=== PATIENT | male | born 1945 | race Caucasian/White ===

== ENCOUNTER 2017-09-13 15:19 | Inpatient (IN) | payer MEDICARE ==
[~2017-09-13] VITALS: Ht 177.8 cm; Wt 91.6 kg
--- NOTE | ~2017-09-13 | HEMODYNAMI ---
PATIENT:CAROLINE ANDREWS MEDICAL RECORD: [id number] : 41 LOCATION:[facility] D.2122 ADMISSION DATE: 09/13/17 Generatedon:09/15/20179:50 Patient name: CAROLINE ANDREWS Patient #: [id number] SSN: D OB: 1945 Date of study: 09/15/2017 Page: Of Hemodynamic Procedure Report Patient Data Patient Demographics Procedure consent was obtained First Name: CAROLINE Gender: Male Last Name: DARRYL : 1945 [facility] Initial: L Age: 72 year(s) Patient #: [id number] Race: Unknown Additional ID: [id number] Contact details Address: [place] [place] [address] State: [place] City: [place] Zip code: [address] Past Medical History Allergies: No known allergies Admission Admission Data Admission Date: 09/13/2017 Admission Time: 15:19 Room #: .2122 Procedure Procedure Types Cath Procedure Diagnostic Procedure LHC LHC w/Coronaries Sedation Charges Moderate Sedation up to 30 minutes PCI Procedure Coronary Stent Coronary Stent Initial Procedure Description Procedure Date Procedure Date: 09/15/2017 Procedure Start Time: 9:22 Procedure End Time: 9:50 Procedure Staff Name Function Damián Lee MD Performing Physician Urmila Boyd RT Monitor Idalmis Worthington RN Nurse Ernie Sahu RT Scrub Procedure Data Cath Procedure Fluoroscopy Diagnostic fluoroscopy Total fluoroscopy Time: 8 time: 8 min min Diagnostic fluoroscopy Total fluoroscopy dose: dose: 2014 mGy 2015 mGy Contrast Material Contrast Material Type Amount (ml) Isovue 300 88 Entry Location Entry Primary Successful Side Size Upsize Upsize Entry Closure Yeager ccessful Closure Location (Fr) 1 (Fr) 2 (Fr) Remarks Device Remarks Radial Right 6 Fr Mechanical artery Short Compression Estimated blood loss: 10 ml Diagnostic catheters Device Type Used For End Catheter Placement DIAGNOSTIC [place] 110cm 5 Left Coronary Fr catheter ([id number]) Angiography DIAGNOSTIC [place] 110cm 5 LV Angiography Fr catheter ([id number]) DIAGNOSTIC [place] 110cm 5 Right Coronary Fr catheter ([id number]) Angiography Procedure Complications No complications Procedure Medications Medication Administration Route Dosage Oxygen NC 2 l/min Lidocaine 1% Heparin Flush Bag added to field 2 bags (1000units/500ml NS) 0.9% NaCl I.V. 100 ml/hr Versed I.V. 1 mg Fentanyl I.V. 50 mcg Versed I.V. 1 mg Fentanyl I.V. 50 mcg Radial Cocktail I.A. 1 syringe (Verapomil 2mg/Nitro 400mcg/Heparin 1500units) Angiomax (bolus) I.V. 13.5 ml Angiomax Drip I.V. drip 32.2 ml/hr (250mg/50ml NS) (Standard) Versed I.V. 1 mg Angiomax Drip 32.2 ml/hr (250mg/50ml NS) (Standard) Hemodynamics Rest Heart Rate: 77 (bpm) Snapshots Pre Cath Intra NCS Post Cath Vital Signs Time Heart Resp SPO2 etCO2 NIBP (mmHg) Rhythm Pain Sedation Rate (ipm) (%) (mmHg) Status Level (bpm) 9:02:02 71 23 99 18.8 147/90(120) A-Fib 0 (11) 10(A) , No pain 9:06:18 70 16 99 24 137/86(120) A-Fib 0 (11) 10(A) , No pain 9:10:32 69 18 99 29.3 120/85(96) A-Fib 0 (11) 10(A) , No pain 9:14:39 61 21 98 23.3 126/80(99) A-Fib 0 (11) 10(A) , No pain 9:18:51 57 21 98 21.8 113/74(88) A-Fib 0 (11) 10(A) , No pain 9:22:59 73 17 98 29.2 120/72(103) A-Fib 0 (11) 9(A) , No pain 9:27:15 74 19 95 24.8 88/58(69) A-Fib 0 (11) 9(A) , No pain 9:31:17 75 14 96 26.3 104/65(76) A-Fib 0 (11) 9(A) , No pain 9:35:23 65 19 100 22.5 105/71(79) A-Fib 0 (11) 9(A) , No pain 9:39:28 70 17 97 26.3 105/71(84) A-Fib 0 (11) 10(A) , No pain 9:43:34 69 20 97 18.9 104/69(95) A-Fib 0 (11) 10(A) , No pain 9:47:42 62 18 98 17.2 110/62(88) A-Fib 0 (11) 10(A) , No pain Medications Time Medication Route Dose Verified Delivered Reason Notes Effectiveness by by 9:02:30 Oxygen NC 2 l/min Damián Buffie used for Rosa Worthington RN procedure 9:02:37 Lidocaine 1% Damián Buffie Rosa Worthington RN, MD 9:02:42 Heparin Flush added to 2 bags Damián Buffie used for Bag field Rosa Worthington RN procedure (1000units/500ml NS) 9:02:49 0.9% NaCl I.V. 100 Damián Buffie Per physician ml/hr Rosa Worthington RN, MD 9:16:16 Versed I.V. 1 mg Damián Buffie for sedation Rosa Worthington RN, MD 9:16:22 Fentanyl I.V. 50 mcg Damián Buffie for sedation Rosa Worthington RN, MD 9:19:55 Versed I.V. 1 mg Damián Buffie for sedation Rosa Worthington RN, MD 9:19:59 Fentanyl I.V. 50 mcg Damián Buffie for sedation Rosa Worthington RN, MD 9:20:09 Radial Cocktail I.A. 1 Damián Damián for (Verapomil syringe Rosa Lee MD vasodilation 2mg/Nitro MD 400mcg/Heparin 1500units) 9:34:32 Angiomax (bolus) I.V. 13.5 ml Damián Buffie for 250 Rosa Worthington RN anticoagulation mg/50 MD ml 9:35:24 Angiomax Drip I.V. drip 32.2 Damián Buffie for (250mg/50ml NS) ml/hr Rosa Worthington RN anticoagulation (Standard) 9:39:00 Versed I.V. 1 mg Damián Buffie for sedation Rosa Worthington RN, MD 9:47:31 Angiomax Drip I.V. drip- 32.2 Damián Buffie for (250mg/50ml NS) discontinued ml/hr Rsoa Worthington RN anticoagulation (Standard) MD Procedure Log Time Note 8:42:26 Time tracking: Regular hours (M-F 7:00 - 5:00) 8:42:31 Plan of Care:Hemodynamics will remain stable., Cardiac rhythm will remain stable., Comfort level will be maintained., Respiratory function will remain adequate., Patient/ family verbilizes understanding of procedure., Procedure tolerated without complication., Recovers from procedure without complications.. 8:43:41 Urmila Counts RT(R) sent for patient. Start room use. 8:56:09 Patient received from PCU to CCL 2 Alert and oriented. Tansferred to table in Supine position. 8:56:10 Warm blankets applied, and ambrose hugger turned on for patient comfort. 8:56:10 Correct patient and procedure confirmed by team. 8:56:12 Signed procedure consent form obtained from patient. 8:56:13 ECG and BP/O2 sat monitors applied to patient. 9:00:38 Vital chart was started 9:02:30 Oxygen 2 l/min NC was administered by Idalmis Worthington RN; used for procedure; 9:02:37 Lidocaine 1% was administered by Idalmis Worthington RN; ; 9:02:42 Heparin Flush Bag (1000units/500ml NS) 2 bags added to field was administered by Idalmis Worthington RN; used for procedure; 9:02:49 0.9% NaCl 100 ml/hr I.V. was administered by Idalmis Worthington RN; Per physician; 9:12:08 Full Disclosure recording started 9:12:13 Rhythm: atrial fibrillation 9:12:44 Baseline sample Acquired. 9:13:59 H&P Date Dictated: 09/14/2017 Within 30 days and on chart.. 9:14:05 Pre-procedure instructions explained to patient. 9:14:06 Pre-op teaching completed and patient verbalized understanding. 9:14:07 Family unavailable. 9:14:19 Patient NPO since Midnight. 9:14:28 Patient allergic to No known allergies 9:14:31 Is the patient allergic to Iodine/contrast media? No. 9:14:37 Is patient on blood thinner?Yes 9:14:38 ACC The patient was administered the following blood thiners within the last 24 hours: ACCPlavix 9:14:44 Patient diabetic? No. 9:14:46 Previous problem with sedation/anesthesia? No ? 9:14:47 Snore? Yes 9:14:53 Sleep apnea? Yes 9:14:54 Deviated septum? No 9:14:55 Opens mouth fully? Yes 9:14:55 Sticks out tongue? Yes 9:14:57 Airway obstruction? No ? 9:14:59 Dentures? No ? 9:15:02 Pre procedure: right dorsailis pedis pulse 2+ Normal; easily identifiable; not easily obliterated 9:15:03 Modified Oren's test Ulnar < 7 seconds 9:15:06 Patient pain scale 0/10 ?. 9:15:13 IV patent on arrival in left forearm with 0.9% NaCl at [facility]. 9:15:17 Lab results completed and on chart. 9:15:21 Right Radial & Right Groin area was prepped with chlora-prep and draped in sterile fashion 9:15:22 Alarms reviewed by R. N. 9:15:22 Sharps counted by scrub and verified by R.N. 9:15:26 Use device set Radial Dx or PCI 9:15:27 ACIST Syringe (83184) opened to sterile field. 9:15:27 Medline Cath Pack ([id number]) opened to sterile field. 9:15:28 Bag Decanter (2002S) opened to sterile field. 9:15:28 DIAGNOSTIC WIRE .035 260cm J wire (572915) opened to sterile field. 9:15:29 ACIST Hand Control (01367) opened to sterile field. 9:15:29 ACIST Manifold (23757) opened to sterile field. 9:15:30 MBrace Wrist Support ([id number]) opened to sterile field. 9:15:32 SHEATH 6Fr Prelude Radial ([id number]) opened to sterile field. 9:15:42 Final Timeout: patient, procedure, and site verified with staff and physician. All members of the team are in agreement. 9:15:45 Right Radial site verified by team. 9:15:47 Physical assessment completed. ASA score P 2 - A patient with mild systemic disease as per Damián Lee MD. 9:15:52 Sedation plan: IV Moderate Sedation Medication:Versed, Fentanyl 9:16:16 Versed 1 mg I.V. was administered by Buffie Worthington RN; for sedation; 9:16:22 Fentanyl 50 mcg I.V. was administered by Idalmis Worthington RN; for sedation; 9:18:45 Zero performed for pressure channel P1 9:19:55 Versed 1 mg I.V. was administered by Idalmis Worthington RN; for sedation; 9:19:59 Fentanyl 50 mcg I.V. was administered by Idalmis Worthington RN; for sedation; 9:20:09 Radial Cocktail (Verapomil 2mg/Nitro 400mcg/Heparin 1500units) 1 syringe I.A. was administered by Damián Lee MD; for vasodilation; 9:22:05 Procedure started. 9:22:32 Local anesthetic to right radial artery with Lidocaine 1% by Damián Lee MD.INITIAL ACCESS ONLY 9:24:44 A 6 Fr Short sheath was inserted into the Right Radial artery 9:26:10 A DIAGNOSTIC [place] 110cm 5 Fr catheter ([id number]) was advanced over the wire and used for Left Coronary Angiography. 9:29:03 A DIAGNOSTIC [place] 110cm 5 Fr catheter (545900) was advanced over the wire and used for LV Angiography. 9:29:09 A DIAGNOSTIC [place] 110cm 5 Fr catheter (273680) was advanced over the wire and used for Right Coronary Angiography. 9:29:11 Catheter removed. 9:29:38 Use device set NORRED PCI 9:29:44 INFLATOR Merit BasixCompak (ZE8965) opened to sterile field. 9:29:45 COPILOT Valve Control (7415098) opened to sterile field. 9:29:46 BMW 190cm Williamson 2 J wire ([id number]) opened to sterile field. 9:30:30 GUIDE 6FR EBU 3.5 SH catheter ([id number]) opened to sterile field. 9:31:55 6 Fr EBU 3.5 SH guide catheter was inserted over the wire 9:33:25 BMW wire advanced. 9:34:32 Angiomax (bolus) 13.5 ml I.V. was administered by Idalmis Worthington RN; for anticoagulation; 250 mg/50 ml 9:35:24 Angiomax Drip (250mg/50ml NS) (Standard) 32.2 ml/hr I.V. drip was administered by Idalmis Worthington RN; for anticoagulation; 9:36:15 The ALISIA RX 2.0 x 18 stent ([id number]) was advanced then removed because of failure to cross lesion 9:38:10 Inflate balloon Inflation number: 1 A EUPHORA 2.0 x 20 Balloon ([id number]) was prepped and advanced across the Dist CX, then inflated to 12 BERTHA for 0:11 (min:sec). 9:39:00 Versed 1 mg I.V. was administered by Idalmis Worthington RN; for sedation; 9:39:18 Balloon removed over the wire. 9:40:19 Place stent Inflation Number: 2 A ALISIA RX 2.0 x 18 stent ([id number]) was prepped and advanced across the Dist CX. The stent was deployed at 12 BERTHA for 0:10 (min:sec). 9:40:35 Inflation number: 3 The stent balloon was then re-inflated across the Dist CX to 12 BERTHA for 0:08 (min:sec). 9:40:46 Inflation number: 4 The stent balloon was then re-inflated across the Dist CX to 12 BERTHA for 0:05 (min:sec). 9:41:05 Stent catheter was removed intact over wire. 9:43:36 Place stent Inflation Number: 1 A ALISIA RX 2.0 x 26 stent ([id number]) was prepped and advanced across the Mid CX. The stent was deployed at 15 BERTHA for 0:15 (min:sec). 9:45:05 Stent catheter was removed intact over wire. 9:45:06 Wire removed. 9:45:06 Guide catheter removed. 9:45:32 Sheath removed intact; hemostasis achieved with Mechanical Compression to the Right Radial artery. 9:45:49 Fluoroscopy time 08.00 minutes. 9:45:53 Flurop Dose total: 2014 9:45:53 Fluoroscopy dose: 2015 mGy 9:46:24 Contrast amount:Isovue 300 88ml. 9:46:25 Sharps counted by scrub and verified by R.N. 9:46:28 Insertion/operative site no bleeding no hematoma. 9:46:30 Post-op/insertion site Right Femoral artery dressed using a 4 x 4 and Tegaderm. 9:46:34 Post right femoral artery:stable, clean and dry 9:46:36 Procedure ended.(Physican Out) 9:46:36 Post Procedure Pulses reassessed and unchanged 9:46:40 Post-procedure physical assessment completed. ASA score P 2 - A patient with mild systemic disease as per Damián Lee MD. 9:46:42 Post procedure rhythm: unchanged. 9:46:45 Estimated blood loss: 10 ml 9:46:50 Post procedure instruction explained to patient.Patient verbalizes understanding. 9:46:51 Patient needs reinforcement of post procedure teaching. 9:46:57 Procedure Complication : No complications 9:46:59 See physician's report for complete and final results. 9:47:31 Angiomax Drip (250mg/50ml NS) (Standard) 32.2 ml/hr I.V. drip- discontinued was administered by Idalmis Worthington RN; for anticoagulation; 9:47:48 Procedure type changed to Cath procedure, Diagnostic procedure, LHC, LHC w/Coronaries, Sedation Charges, Moderate Sedation up to 30 minutes, PCI procedure, Coronary Stent, Coronary Stent Initial 9:48:25 TR BAND Large ([id number]) opened to sterile field. 9:49:38 Procedure and supply charges have been captured, reviewed, submitted and are correct. 9:49:49 Vital chart was stopped 9:49:53 Report given to PCU. 9:49:56 Patient transfered to PCU with Bed. 9:50:07 Procedure ended. 9:50:07 Full Disclosure recording stopped 9:50:11 End room use (Document Last) Intervention Summary Intervention Notes Time ActionType Lesion and Equipment Used Action# Pressure Duration Attributes 9:36:15 Discard ALISIA RX 2.0 x Stent 18 stent ([id number]) 9:38:10 Inflate Dist CX EUPHORA 2.0 x 1 12 00:11 balloon 20 Balloon ([id number]) 9:40:19 Place stent Dist CX ALISIA RX 2.0 x 2 12 00:10 18 stent ([id number]) 9:40:35 Reinflate Dist CX ALISIA RX 2.0 x 3 12 00:08 stent 18 stent balloon ([id number]) 9:40:46 Reinflate Dist CX ALISIA RX 2.0 x 4 12 00:06 stent 18 stent balloon ([id number]) 9:43:36 Place stent Mid CX ALISIA RX 2.0 x 1 15 00:15 26 stent ([id number]) Device Usage Item Name Manufacture Quantity Catalog Number Hospital Part Current Minimal Lot# / Charge Number Stock Stock Serial# Code ACIST Syringe Acist 1 21732 [id number] 849846 234060 20 (84677) Medical Systems Inc Medline Cath Cardinal 1 [id number] 172628 98527 351793 5 Pack Health ([id number]) Bag Decanter Microtek 1 2001S 742824 61196 575636 5 (2001S) Medical Inc. DIAGNOSTIC WIRE St Vikash 1 793531 229063 296015 020270 30 .035 260cm J wire (067545) ACIST Hand Acist 1 68700 317551 432329 059521 5 Control (91033) Medical Systems Inc ACIST Manifold Acist 1 39112 158553 015252 584318 5 (45890) Medical Systems Inc MBrace Wrist Advanced 1 140-0250-00 167087 48295 708674 5 Support Vascular ([id number]) Dynamics SHEATH 6Fr Merit 1 [id number] 363364 879285 446066 5 Prelude Radial Medical ([id number]) DIAGNOSTIC Terumo 1 405013 109046 300523 359261 5 [place] 110cm 5 Fr catheter (368898) INFLATOR Merit Merit 1 [id number] 791439 126329 688045 15 DangDang.[employer] Medical (XN4205) COPILOT Valve Judge 1 4554848 703955 603145 706362 5 Control Vascular (3900088) BMW 190cm Judge 1 [id number] 057941 99744 459784 5 Williamson 2 J Vascular wire ([id number]) GUIDE 6FR EBU Medtronic 1 [id number] 648829 33611 438735 1 3.5 SH catheter ([id number]) ALISIA RX 2.0 x Medtronic 1 [id number] 688278 8205367 121596 5 [id number] 18 stent ([id number]) EUPHORA 2.0 x Medtronic 1 [id number] 068681 769137 243438 5 [id number] 20 Balloon ([id number]) ALISIA RX 2.0 x Medtronic 1 [id number] 926104 377335 378407 5 [id number] 26 stent ([id number]) TR BAND Large Terumo 1 [id number] 461245 682998 474725 40 ([id number]) Signature Audit [place] Stage Time Signature Unsigned Intra-Procedure 09/15/2017 Urmila 9:50:25 AM Counts RT(R) Signatures Monitor : Urmila Signature : Counts RT Date : Time : [id number] [place] [address]
--- NOTE | ~2017-09-13 | EC ---
PATIENT:CAROLINE ANDREWS DATE OF SERVICE: 09/13/17 SEX: M MEDICAL RECORD: [id number] DATE OF : 41 LOCATION:D.M2 D.212 AGE OF PATIENT: 72 ADMISSION DATE: 09/13/17 REFERRING PHYSICIAN: INTERPRETING PHYSICIAN: DELFINO ROY MD ECHOCARDIOGRAM REPORT ECHO CHARGES 4 ECHO COMPLETE Date: 09/14 CLINICAL DIAGNOSIS: UNSTABLE ANGINA RECENT AVR ECHOCARDIOGRAPHIC MEASUREMENTS (adult normal given) AC root (d.<3.7cm) 5.2 cm LV Septum d (<1.2 cm> 1.4 cm Valve Excursion 1.8 cm LV Septum (systole) 1.6 cm Left Atria (s.<4.0cm> 5.5 cm LVPW d(<1.2cm) 1.8 cm RV (d.<2.3cm) 3.9 cm LVPW (sytole) 1.9 cm LV diastole(<5.6CM) 4.7 cm MV E-F(>70mm/sec) cm LV systole 3.9 cm LVOT Diameter 1.7 cm MV exc.(>10mm) 1.8 cm Est.ejection fraction (50-75%) % DOPPLER: LVIT cm/sec A 29.0 cm/sec E 80.0 cm/sec LA cm/sec RVSP 34 mmHg LVOT 106 cm/sec AOP1/2T m/s Asc. Ao 128 cm/sec RVOT 68 cm/sec RA cm/sec PA 78 cm/sec AV Gradient Peak 6.59 mmHg AV Mean 3.15 mmHg AV Area 1.9 cm MV Gradient Peak 4.09 mmHg MV Mean 1.57 mmHg MV Area cm COMMENTS: Desulphurizer Operator: 2 SHANTI LITTLE Meteorologist Liaison: 4 Dr. Roy TAPE# PACS Pericardial Effusion Y DATE OF SERVICE: PROCEDURE: Echocardiogram. FINDINGS: 1. Left ventricle is hyperdynamic. EF 60% to 65%. There is atrial fibrillation and unable to comment on diastolic dysfunction. 2. The left atrium is severely dilated. 3. Aortic valve is a tissue valve with normal structure and function. 4. The mitral valve has mild mitral regurgitation. ECHOCARDIOGRAM REPORT [id number] CAROLINE ANDREWS 5. Tricuspid valve has mild tricuspid regurgitation. 6. The right ventricle is moderately dilated. 7. Right atrium is severely dilated. 8. Pulmonic valve has trace pulmonic insufficiency. There is a small pericardial effusion without tamponade. CONCLUSIONS: The patient has evidence of hypertensive heart disease, has what appears to be a tissue valve replacement with normal function. There were multiple pauses between 2-3 days during the evaluation, which may be of some concern. TRANSINT:[id number] Voice Confirmation ID: [id number] DOCUMENT ID: [id number] DELFINO ROY MD at 1120 CC: [id number] DICTATION DATE: 09/15/17 1530 AUTOMOBILES SALESPERSON: 09/15/17 1546 DIS IN 09/15/17 [facility] [address] [place] [address]
--- NOTE | ~2017-09-13 | CN ---
PATIENT NAME:CAROLINE ANDREWS MEDICAL RECORD: [id number] : 41 LOCATION:[facility] D.2122 ADMIT DATE: 09/13/17 ACCOUNT: [id number] CONSULTING PHYSICIAN: KVNG WRIGHT MD REFERRING PHYSICIAN: DELFINO ROY MD DATE OF CONSULTATION: 09/13/2017 DATE OF ADMISSION: 09/13/2017. REASON FOR CONSULTATION: Medical management. HISTORY OF PRESENT ILLNESS: The patient is a 72-year-old gentleman who over the past couple of weeks, had increasing shortness of breath. He has had shortness of breath with exertion. He had been diuresed, sent to Dr. Roy for further evaluation. It was felt that the patient should be admitted for possible cardiac catheterization. PAST MEDICAL HISTORY: Significant that in June of this 2017, he had gone to [facility] where he had a diagnosis of severe aortic valve stenosis, exertional dyspnea, chronic atrial fibrillation. He underwent on June 13 aortic valve replacement with Trifecta prosthesis to 25 mm. He also underwent a pulmonary vein isolation for ablation of atrial fibrillation, amputation of the left atrial appendix. The patient states that over the past couple of weeks he has continued to worsen. His history is also significant that he has had cataract surgery. He has had a penile implant. He has had a cholecystectomy, hypertension, prostate cancer, diverticulitis, sleep apnea. FAMILY HISTORY: Father had myocardial infarction. Mother had dementia. MEDICATIONS: Include aspirin 81 mg once a day, Lasix 40 mg once a day, MiraLax p.r.n., doxepin 25 mg p.o. every day, Prilosec 20 mg 1 p.o. every day, primidone 50 mg 2 tablets p.o. at bedtime, quinapril 10 mg p.o. every day, Restoril 15 mg p.o. at bedtime, Crestor 10 mg once a day, vitamin D once a day. ALLERGIES: He has no known drug allergies. SOCIAL HISTORY: The patient is a former smoker. He smoked 2 packs from age 23 to 33. He retired, educated 4th grade or 4 years of college. He is . 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 He was born in [place], [place] and raised in [place], [place]. REVIEW OF SYSTEMS: NEUROLOGIC: He denies any headaches, seizure, or syncope. HEENT: Denies change in visual or auditory acuity. PULMONARY: He does report shortness of breath with exertion. He denies any cough, any congestion. CARDIOVASCULAR: No chest pain. GASTROINTESTINAL: No chronic nausea, vomiting, melena, or hematochezia. GENITOURINARY: No urgency, frequency, or dysuria. PHYSICAL EXAMINATION: VITAL SIGNS: The patient's weight was 205. His blood pressure is 140/80, his pulse was 90 and irregular, respiration 14. GENERAL: He is alert. He is oriented times 3. HEENT: Head is normocephalic. No lesions. Ears: TMs clear. Eyes: Pupils CONSULT REPORT [id number] CAROLINE ANDREWS L equal, round, reactive to light. His extraocular movements are intact. His nasal cavity, oral cavity, oropharynx clear. NECK: Supple. There is no adenopathy. HEART: Irregular, but controlled. LUNGS: Clear. ABDOMEN: Soft, bowel sounds positive. EXTREMITIES: He has 1+ pretibial edema. ASSESSMENT: 1. History of aortic valve replacement in June of this year. 2. History of chronic atrial fibrillation. 3. Hypertension. 4. History of prostate cancer. 5. Insomnia. 6. Gastroesophageal reflux. PLAN: We will hold his Pradaxa. It is felt that the patient would benefit from cardiac catheterization and also have an echocardiogram. We will follow along with you. Thanks for the consultation. TRANSINT:[id number] Voice Confirmation ID: [id number] DOCUMENT ID: [id number] KVNG WRIGHT MD at 1451 CC: [id number] DICTATION DATE: 09/14/17 0736 CORPORATE JOB TITLES: 09/14/17 1130 DIS IN 09/15/17 [facility] [address] [place] [address]
[~2017-09-13 15:19] MED LIST: ACCUPRIL40 MG PO; HYDROCHLOROTHIA25 MG PO; HYDROCODONE-APA1 TAB PO; METOPROLOL TART25 MG PO; MULTIPLE VITAMI1 TA1 PO; MYSOLINE250 MG PO; OMEPRAZOLE20 M1 PO; PRADAXA150 MG PO; SINEQUAN25 MG PO
[2017-09-13 15:54] VITALS: BP 140/90; BMI 29.0
[2017-09-13] MEDS ORDERED: K-TAB10 MEQ PO (17:34)
[2017-09-13] MEDS ORDERED: LASIX40 MG PO (17:34)
[2017-09-13] MEDS ORDERED: RESTORIL15 MG PO (17:38)
[2017-09-13] MEDS ORDERED: BAYER CHEWABLE81 MG PO (17:40)
[2017-09-13] MEDS ORDERED: ACCUPRIL10 MG PO (17:40)
[2017-09-13] MEDS ORDERED: CRESTOR10 MG PO (17:42)
[2017-09-13] MEDS ORDERED: TOPROL XL25 MG PO (17:45)
[2017-09-13] MEDS ORDERED: MULTIPLE VITAMI1 TA1 PO (17:46)
[2017-09-13] MEDS ORDERED: MYSOLINE 50 MG50 MG PO (17:50)
[2017-09-13 18:41] LABS: BASOPHILS 0.7 % (0-2); EOSINOPHILS 1.6 % (0-7); HEMATOCRIT 33.5 % (42.0-54.0); HEMOGLOBIN 11.3 g/dL (13.5-17.5); IMMATURE GRANULOCYTES 0.1 % (0-5); LYMPHOCYTES 20.5 % (15-50); MCH 29.4 pg (26.0-34.0); MCHC 33.7 g/dL (31.0-37.0); MCV 87.2 fL (80.0-100.0); MONOCYTES 13.1 % (2-11); RBC 3.84 10x6/uL (4.20-6.10); RDW 14.3 % (11.5-14.5); WBC 6.7 10x3/uL (4.8-10.8)
[2017-09-13 19:23] LABS: ALBUMIN 3.3 g/dL (3.4-5.0); ALKALINE PHOSPHATASE 85 U/L (46-116); ALT (SGPT) 25 U/L (10-68); BILIRUBIN - TOTAL 0.77 mg/dL (0.2-1.3); CALC OSMOLALITY 259 mosm/kg (275-300); CALCIUM 8.9 mg/dL (8.5-10.1); CARBON DIOXIDE 26.2 mmol/L (21.0-32.0); CHLORIDE - SERUM 96 mmol/L (98-107); CREATININE - SERUM 0.7 mg/dL (0.6-1.3); GLUCOSE 144 mg/dL (74-106); POTASSIUM - SERUM 3.9 mmol/L (3.5-5.1); PRO BNP 813 pg/mL (0-125); PROTEIN - SERUM 7.4 g/dL (6.4-8.2); SODIUM 129 mmol/L (136-145); UREA NITROGEN 8 mg/dL (7-18); eGFR NON AFRICAN AMERICAN > 90 mL/min (90-120)
[2017-09-13 19:24] LABS: TROPONIN-I < 0.017 ng/mL (0.000-0.060)
[2017-09-13 19:33] LABS: PLATELET COUNT 250 10x3/uL (130-400)
[2017-09-13 19:44] VITALS: BP 132/83
[2017-09-13 23:31] VITALS: BP 135/72
[2017-09-14 04:00] VITALS: BP 155/80
[2017-09-14 08:18] VITALS: BP 126/78
[2017-09-14 11:53] VITALS: BP 121/70
[2017-09-14 12:26] VITALS: Ht 177.8 cm; Wt 91.6 kg
[2017-09-14 16:00] VITALS: BP 136/73
[2017-09-14 20:00] VITALS: BP 139/64
[2017-09-15] VITALS: BP 157/82
[2017-09-15 04:00] VITALS: BP 113/81
[2017-09-15 05:49] LABS: BASOPHILS 0.5 % (0-2); EOSINOPHILS 2.4 % (0-7); HEMATOCRIT 33.5 % (42.0-54.0); HEMOGLOBIN 11.2 g/dL (13.5-17.5); IMMATURE GRANULOCYTES 0.1 % (0-5); LYMPHOCYTES 22.3 % (15-50); MCH 29.1 pg (26.0-34.0); MCHC 33.4 g/dL (31.0-37.0); MEAN PLATELET VOLUME 10.5 fL (7.4-10.4); MONOCYTES 11.4 % (2-11); NEUTROPHILS 63.3 % (40-80); PLATELET COUNT 277 10x3/uL (130-400); RBC 3.85 10x6/uL (4.20-6.10); RDW 14.4 % (11.5-14.5); WBC 7.5 10x3/uL (4.8-10.8)
[2017-09-15 06:09] LABS: CALC OSMOLALITY 264 mosm/kg (275-300); CALCIUM 8.9 mg/dL (8.5-10.1); CARBON DIOXIDE 25.6 mmol/L (21.0-32.0); CHLORIDE - SERUM 97 mmol/L (98-107); CREATININE - SERUM 0.7 mg/dL (0.6-1.3); GLUCOSE 119 mg/dL (74-106); POTASSIUM - SERUM 3.5 mmol/L (3.5-5.1); SODIUM 133 mmol/L (136-145); UREA NITROGEN 7 mg/dL (7-18); eGFR NON AFRICAN AMERICAN > 90 mL/min (90-120)
[2017-09-15 08:38] VITALS: BP 124/77
[2017-09-15 12:30] VITALS: BP 113/69
[2017-09-15] MEDS ORDERED: PRADAXA150 MG PO (13:13)
[2017-09-15] MEDS ORDERED: PLAVIX75 MG PO (13:16)
== END 2017-09-15 16:27 | disposition home or self-care (01) | DRG 247 ==
LOC: D.M2 15:19
PROVIDERS: Family Medicine; Internal Medicine Cardiovascular Disease
PROC: B2111ZZ Fluoroscopy of Multiple Coronary Arteries using Low Osmolar Contrast (ICD-10-PCS; 2017-09-15)
PROC: B2151ZZ Fluoroscopy of Left Heart using Low Osmolar Contrast (ICD-10-PCS; 2017-09-15)
PROC: 027035Z Dilation of Coronary Artery, One Artery with Two Drug-eluting Intraluminal Devices, Percutaneous Approach (ICD-10-PCS; principal; 2017-09-15 09:00)
PROC: 4A023N7 Measurement of Cardiac Sampling and Pressure, Left Heart, Percutaneous Approach (ICD-10-PCS; 2017-09-15 09:00)
DX: I25.119 Atherosclerotic heart disease of native coronary artery with unspecified angina pectoris (principal); I48.2 Chronic atrial fibrillation; I11.0 Hypertensive heart disease with heart failure; I50.9 Heart failure, unspecified; G47.00 Insomnia, unspecified; K21.9 Gastro-esophageal reflux disease without esophagitis; Z95.2 Presence of prosthetic heart valve; Z85.46 Personal history of malignant neoplasm of prostate